=== PATIENT | female | born 1985 | race Hispanic/Latino ===

== ENCOUNTER 2016-09-01 21:18 | Emergency (ER) | payer SELFPAY ==
[~2016-09-01] VITALS: Ht 152.4 cm; Wt 89.0 kg
[~2016-09-01 21:18] MED LIST: ACETTAB3 PO; AMOXICILLIN500 MG PO; CIPRO500 MG OR; CIPRO500 MG PO; CIPROFLOXACN500 MG PO; DENIES CURRENT MEDS; FLEXERIL PO; LORTAB 5/3255 MG PO; NAPROSYN500 MG OR; NAPROSYN500 MG PO; NO; NO HOME MEDS; PRE-NATAL PO; PRILOSEC OTC20 MG OR; PROAIR HFA IN; ULTRAM50 M1 PO; ULTRAM50 MG OR
[2016-09-01 22:02] LABS: HEMATOCRIT 35.7 % (37.0-47.0); HEMOGLOBIN 11.7 g/dl (12.0-16.0); IMMATURE GRANULOCYTES 0.9 % (0.0-1.0); MEAN CELL VOLUME 80.6 fL CALC (80.0-100.0); MEAN CORPUSCULAR HGB 26.4 pG CALC (26.0-32.0); MEAN CORPUSCULAR HGB CONC 32.8 g/L CALC (32.0-36.0); NEUT# 7.1 thou/uL (2.00-7.15); RED BLOOD COUNT 4.43 mill/uL (4.20-5.60); RED CELL DISTRI WIDTH 14.6 % (11.5-15.5)
[2016-09-01 22:11] LABS: ALBUMIN 4.2 g/dL (3.2-5.0); ALKALINE PHOSPHATASE 92 u/l (38-126); ANION GAP 14 (6-22 (CALC)); BILIRUBIN, TOTAL 0.3 mg/dL (0.0-1.4); BUN 10 mg/dL (7-17); BUN/CREATININE RATIO 14 (12-20 (CALC)); CALCIUM 8.9 mg/dL (8.4-10.2); CARBON DIOXIDE 28 mmol/l (22-30); CHLORIDE 102 mmol/l (95-108); CREATININE 0.7 mg/dL (0.5-1.0); GFR > 60 ML/MIN (>=60 (CALC)); GFR FOR AFR.AMER. > 60 ML/MIN (>=60 (CALC)); GLUCOSE 95 mg/dL (65-105); POTASSIUM 3.6 mmol/l (3.5-5.1); SGOT/AST 31 u/l (14-36); SGPT/ALT 39 u/l (9-52); SODIUM 140 mmol/l (137-146); TOTAL PROTEIN 7.9 g/dL (6.3-8.2)
[2016-09-01 22:21] LABS: MYOGLOBIN 17 ng/mL (0 - 62)
[2016-09-01] MEDS ORDERED: NAPROSYN500 MG PO (22:58)
[2016-09-01 23:16] LABS: URINE BILIRUBIN - DIPSTICK NEGATIVE (NEGATIVE); URINE BLOOD DIPSTICK NEGATIVE (NEGATIVE); URINE CLARITY CLEAR; URINE COLOR YELLOW; URINE GLUCOSE - DIPSTICK NEGATIVE (NEGATIVE); URINE KETONE NEGATIVE (NEGATIVE); URINE LEUK ESTERASE NEGATIVE (NEGATIVE); URINE NITRITE - DIPSTICK NEGATIVE (Negative); URINE PH 6.5 (4.5-8.0); URINE PROTEIN - DIPSTICK NEGATIVE (NEG-TRACE); URINE UROBILINOGEN - DIPSTICK 0.2 E.U./dL (0.2)
[2016-09-01 23:17] LABS: BARBITURATES NEGATIVE (NEGATIVE); COCAINE NEGATIVE (NEGATIVE); METHADONE NEGATIVE (NEGATIVE); OXCYCODONE NEGATIVE (NEGATIVE); TETRAHYDROCANNABIONOL NEGATIVE (NEGATIVE); TRICYLIC ANTIDEPRESSANTS NEGATIVE (NEGATIVE)
[2016-09-01 23:24] VITALS: BP 117/70
== END 2016-09-01 23:25 | disposition home or self-care (01) | DRG 313 ==
LOC: ED 21:18
PROVIDERS: Emergency Medicine
DX: R07.89 Other chest pain (principal); R51 Headache

== ENCOUNTER 2017-07-28 22:08 | Emergency (ER) | payer SELFPAY ==
[~2017-07-28] VITALS: Ht 152.4 cm; Wt 87.6 kg
[2017-07-28] MEDS ORDERED: XANAX0.25 MG PO (22:49)
[2017-07-29 00:45] VITALS: BP 132/90
== END 2017-07-29 00:45 | disposition home or self-care (01) | DRG 882 ==
LOC: ED 22:08
DX: F43.20 Adjustment disorder, unspecified (principal)

== ENCOUNTER 2018-02-11 14:14 | Emergency (ER) | payer SELFPAY ==
[~2018-02-11] VITALS: Ht 152.4 cm; Wt 85.0 kg
[~2018-02-11 14:14] MED LIST changes: +CEPHALEXIN500 M1 PO; +XANAX0.25 MG PO; +ZOFRAN ODT4 MG PO
[2018-02-11] MEDS ORDERED: PRENATA3 PO (14:26)
[2018-02-11 15:02] LABS: HEMATOCRIT 36.2 % (37.0-47.0); HEMOGLOBIN 11.9 g/dl (12.0-16.0); IMMATURE GRANULOCYTES 0.5 % (0.0-5.0); MEAN CELL VOLUME 79.7 fL CALC (80.0-100.0); MEAN CORPUSCULAR HGB 26.2 pG CALC (26.0-32.0); MEAN CORPUSCULAR HGB CONC 32.9 g/L CALC (32.0-36.0); NEUT# 8.65 thou/uL (2.00-7.15); RED BLOOD COUNT 4.54 mill/uL (4.20-5.60); RED CELL DISTRI WIDTH 14.9 % (11.5-15.5)
[2018-02-11 15:09] LABS: ALBUMIN 4.1 g/dL (3.2-5.0); ALKALINE PHOSPHATASE 94 u/l (38-126); ANION GAP 16 (6-22 (CALC)); BILIRUBIN, TOTAL 0.4 mg/dL (0.0-1.4); BUN 8 mg/dL (7-17); BUN/CREATININE RATIO 14 (12-20 (CALC)); CARBON DIOXIDE 22 mmol/l (22-30); CHLORIDE 105 mmol/l (95-108); CREATININE 0.5 mg/dL (0.5-1.0); GFR > 60 ML/MIN (>=60 (CALC)); GFR FOR AFR.AMER. > 60 ML/MIN (>=60 (CALC)); POTASSIUM 4.1 mmol/l (3.5-5.1); SGOT/AST 33 u/l (14-36); SGPT/ALT 50 u/l (9-52); SODIUM 138 mmol/l (137-146); TOTAL PROTEIN 7.4 g/dL (6.3-8.2)
[2018-02-11 16:26] LABS: URINE BILIRUBIN - DIPSTICK NEGATIVE (NEGATIVE); URINE BLOOD DIPSTICK NEGATIVE (NEGATIVE); URINE COLOR YELLOW; URINE GLUCOSE - DIPSTICK NEGATIVE (NEGATIVE); URINE KETONE NEGATIVE (NEGATIVE); URINE LEUK ESTERASE TRACE (NEGATIVE); URINE NITRITE - DIPSTICK NEGATIVE (Negative); URINE PROTEIN - DIPSTICK NEGATIVE (NEG-TRACE); URINE UROBILINOGEN - DIPSTICK 0.2 E.U./dL (0.2)
[2018-02-11 16:27] LABS: URINE CLARITY HAZY
[2018-02-11] MEDS ORDERED: KEFLEX500 M1 PO (17:20)
[2018-02-11 17:23] VITALS: BP 134/64
[2018-02-11] MEDS ORDERED: REGLAN10 MG PO (17:27)
== END 2018-02-11 17:30 | disposition home or self-care (01) | DRG 781 ==
LOC: ED 14:14
DX: O23.41 Unspecified infection of urinary tract in pregnancy, first trimester (principal); O21.0 Mild hyperemesis gravidarum; Z3A.08 8 weeks gestation of pregnancy

== ENCOUNTER 2018-03-08 18:19 | Emergency (ER) | payer OTHER ==
[~2018-03-08] VITALS: Ht 152.4 cm; Wt 83.0 kg
[~2018-03-08 18:19] MED LIST changes: +KEFLEX500 M1 PO; +PRENATA3 PO; +REGLAN10 MG PO
[2018-03-08 19:09] LABS: URINE BILIRUBIN - DIPSTICK NEGATIVE (NEGATIVE); URINE BLOOD DIPSTICK NEGATIVE (NEGATIVE); URINE COLOR YELLOW; URINE GLUCOSE - DIPSTICK NEGATIVE (NEGATIVE); URINE KETONE TRACE mg/dL (NEGATIVE); URINE LEUK ESTERASE NEGATIVE (NEGATIVE); URINE NITRITE - DIPSTICK NEGATIVE (Negative); URINE PH 5.5 (4.5-8.0); URINE PROTEIN - DIPSTICK NEGATIVE (NEG-TRACE); URINE SPECIFIC GRAVITY 1.025; URINE UROBILINOGEN - DIPSTICK 0.2 E.U./dL (0.2)
[2018-03-08 19:10] LABS: URINE CLARITY CLEAR
[2018-03-08] MEDS ORDERED: ZOFRAN4 MG/TAB PO (19:56)
[2018-03-08 20:10] VITALS: BP 111/68
== END 2018-03-08 20:10 | disposition home or self-care (01) ==
LOC: ED 18:19
DX: O21.9 Vomiting of pregnancy, unspecified (principal); Z3A.12 12 weeks gestation of pregnancy; R11.2 Nausea with vomiting, unspecified; R19.7 Diarrhea, unspecified

== ENCOUNTER 2018-06-18 12:55 | Emergency (ER) | payer MEDICAID ==
[~2018-06-18] VITALS: Ht 152.4 cm; Wt 77.3 kg
[~2018-06-18 12:55] MED LIST changes: +ZOFRAN4 MG/TAB PO
[2018-06-18 13:15] VITALS: BP 120/68
[2018-06-18] MEDS ORDERED: TAM75CAP PO (13:18)
[2018-06-18] MEDS ORDERED: AMOXICILLIN500 M2 PO (13:18)
== END 2018-06-18 14:01 | disposition home or self-care (01) ==
LOC: ED 12:55
DX: O98.512 Other viral diseases complicating pregnancy, second trimester (principal); Z3A.26 26 weeks gestation of pregnancy; J06.9 Acute upper respiratory infection, unspecified; R05 Cough; R50.9 Fever, unspecified

== ENCOUNTER 2018-09-07 06:32 | Emergency (ER) | payer MEDICAID ==
[~2018-09-07] VITALS: Ht 152.4 cm; Wt 100.0 kg
[~2018-09-07 06:32] MED LIST changes: +AMOXICILLIN500 M2 PO; +TAM75CAP PO
[2018-09-07 06:44] VITALS: BP 119/57
== END 2018-09-07 07:15 ==
LOC: ED 06:32
DX: O26.893 Other specified pregnancy related conditions, third trimester (principal); R10.2 Pelvic and perineal pain; Z3A.37 37 weeks gestation of pregnancy

== ENCOUNTER 2019-01-20 18:04 | Emergency (ER) | payer SELFPAY ==
[~2019-01-20] VITALS: Ht 152.4 cm; Wt 83.0 kg
[2019-01-20] MEDS ORDERED: AMOXICILLIN875 MG PO (18:58)
[2019-01-20] MEDS ORDERED: PREDNISONE10 MG PO (18:58)
[2019-01-20 19:34] VITALS: BP 118/60
== END 2019-01-20 19:28 | disposition home or self-care (01) | DRG 153 ==
LOC: ED 18:04
DX: J02.9 Acute pharyngitis, unspecified (principal); H66.92 Otitis media, unspecified, left ear
CPT/HCPCS: J0561

== ENCOUNTER 2019-07-02 | Emergency (ER) | payer SELFPAY ==
[~2019-07-02] MED LIST changes: +AMOXICILLIN875 MG PO; +PREDNISONE10 MG PO
[2019-07-02 19:58] LABS: HEMATOCRIT 35.8 % (37.0-47.0); HEMOGLOBIN 11.4 g/dl (12.0-16.0); IMMATURE GRANULOCYTES 0.4 % (0.0-5.0); MEAN CELL VOLUME 79.4 fL CALC (80.0-100.0); MEAN CORPUSCULAR HGB 25.3 pG CALC (26.0-32.0); MEAN CORPUSCULAR HGB CONC 31.8 g/L CALC (32.0-36.0); NEUT# 5.68 thou/uL (2.00-7.15); RED BLOOD COUNT 4.51 mill/uL (4.20-5.60); RED CELL DISTRI WIDTH 15.9 % (11.5-15.5)
[2019-07-02 20:02] LABS: URINE BILIRUBIN - DIPSTICK NEGATIVE (NEGATIVE); URINE BLOOD DIPSTICK NEGATIVE (NEGATIVE); URINE COLOR YELLOW; URINE GLUCOSE - DIPSTICK NEGATIVE (NEGATIVE); URINE KETONE NEGATIVE (NEGATIVE); URINE NITRITE - DIPSTICK NEGATIVE (Negative); URINE PH 6.5 (4.5-8.0); URINE PROTEIN - DIPSTICK NEGATIVE (NEG-TRACE); URINE SPECIFIC GRAVITY 1.015; URINE UROBILINOGEN - DIPSTICK 0.2 E.U./dL (0.2)
[2019-07-02 20:06] LABS: URINE LEUK ESTERASE SMALL (NEGATIVE)
[2019-07-02 20:20] LABS: URINE RBC 0-2 RBC/hpf (0-5); URINE SQUAMOUS EPITHELIAL CELL RARE EPI/hpf (0-FEW)
[2019-07-02 20:21] LABS: URINE YEAST RARE hpf
[2019-07-02 20:25] LABS: ALKALINE PHOSPHATASE 98 u/l (38-126); ANION GAP 12 (6-22 (CALC)); BILIRUBIN, TOTAL 0.4 mg/dL (0.0-1.4); BUN 11 mg/dL (7-17); BUN/CREATININE RATIO 18 (12-20 (CALC)); CARBON DIOXIDE 25 mmol/l (22-30); CHLORIDE 106 mmol/l (95-108); CREATININE 0.6 mg/dL (0.5-1.0); GFR > 60 ML/MIN (>=60 (CALC)); GFR FOR AFR.AMER. > 60 ML/MIN (>=60 (CALC)); SGOT/AST 29 u/l (14-36); SODIUM 138 mmol/l (137-146); TOTAL PROTEIN 7.5 g/dL (6.3-8.2)
[2019-07-02 20:30] LABS: BARBITURATES NEGATIVE (NEGATIVE); COCAINE NEGATIVE (NEGATIVE); METHADONE NEGATIVE (NEGATIVE); OXCYCODONE NEGATIVE (NEGATIVE); TETRAHYDROCANNABIONOL NEGATIVE (NEGATIVE); TRICYLIC ANTIDEPRESSANTS NEGATIVE (NEGATIVE)
[2019-07-02] MEDS ORDERED: FIORICET PO (20:42)
== END 2019-07-02 21:22 | disposition home or self-care (01) | DRG 103 ==
PROVIDERS: Family Medicine
DX: R51 Headache (principal)

== ENCOUNTER 2020-03-26 14:26 | Emergency (ER) | payer OTHER ==
[~2020-03-26] VITALS: Ht 152.4 cm; Wt 90.0 kg
[~2020-03-26 14:26] MED LIST changes: +FIORICET PO
[2020-03-26 15:48] LABS: URINE BILIRUBIN - DIPSTICK NEGATIVE (NEGATIVE); URINE BLOOD DIPSTICK NEGATIVE (NEGATIVE); URINE COLOR YELLOW; URINE GLUCOSE - DIPSTICK NEGATIVE (NEGATIVE); URINE KETONE NEGATIVE (NEGATIVE); URINE LEUK ESTERASE NEGATIVE (NEGATIVE); URINE NITRITE - DIPSTICK NEGATIVE (Negative); URINE PROTEIN - DIPSTICK NEGATIVE (NEG-TRACE); URINE SPECIFIC GRAVITY >=1.030; URINE UROBILINOGEN - DIPSTICK 0.2 E.U./dL (0.2)
[2020-03-26] MEDS ORDERED: NAPROXEN500 MG PO (17:23)
[2020-03-26 17:34] VITALS: BP 128/85
== END 2020-03-26 17:34 | disposition home or self-care (01) | DRG 552 ==
LOC: ED 14:26
PROVIDERS: Emergency Medicine
DX: S23.3XXA Sprain of ligaments of thoracic spine, initial encounter (principal); S33.5XXA Sprain of ligaments of lumbar spine, initial encounter; S20.212A Contusion of left front wall of thorax, initial encounter; W01.0XXA Fall on same level from slipping, tripping and stumbling without subsequent striking against object, initial encounter; Y93.89 Activity, other specified; Y92.73 Farm field as the place of occurrence of the external cause; Y99.0 Civilian activity done for income or pay

== ENCOUNTER 2020-07-15 21:28 | Emergency (ER) | payer SELFPAY ==
[~2020-07-15] VITALS: Ht 152.4 cm; Wt 91.0 kg
[~2020-07-15 21:28] MED LIST changes: +NAPROXEN500 MG PO
[2020-07-15 22:19] LABS: HEMATOCRIT 36.6 % (37.0-47.0); HEMOGLOBIN 11.8 g/dl (12.0-16.0); IMMATURE GRANULOCYTES 0.3 % (0.0-5.0); MEAN CELL VOLUME 85.7 fL CALC (80.0-100.0); MEAN CORPUSCULAR HGB 27.6 pG CALC (26.0-32.0); MEAN CORPUSCULAR HGB CONC 32.2 g/dL CAL (32.0-36.0); NEUT# 5.88 thou/uL (2.00-7.15); RED BLOOD COUNT 4.27 mill/uL (4.20-5.60); RED CELL DISTRI WIDTH 14.3 % (11.5-15.5)
[2020-07-15 22:33] LABS: ALKALINE PHOSPHATASE 105 u/l (38-126); ANION GAP 10 (6-22 (CALC)); BILIRUBIN, TOTAL 0.4 mg/dL (0.0-1.4); BUN 10 mg/dL (7-17); BUN/CREATININE RATIO 12 (12-20 (CALC)); CARBON DIOXIDE 26 mmol/l (22-30); CHLORIDE 105 mmol/l (95-108); CREATININE 0.8 mg/dL (0.5-1.0); GFR > 60 ML/MIN (>=60 (CALC)); GFR FOR AFR.AMER. > 60 ML/MIN (>=60 (CALC)); POTASSIUM 3.4 mmol/l (3.5-5.1); SODIUM 138 mmol/l (137-146); TOTAL PROTEIN 7.2 g/dL (6.3-8.2)
[2020-07-15 22:34] LABS: PROTHROMBIN TIME 10.3 SECONDS (9.0-12.5)
[2020-07-15 22:36] LABS: SGOT/AST 90 u/l (14-36)
[2020-07-15 22:44] LABS: MYOGLOBIN 38 ng/mL (0 - 62)
[2020-07-15 22:49] LABS: D-DIMER 0.25 mg/L (0.19-0.60)
[2020-07-15] MEDS ORDERED: TORADOL PO (23:14)
[2020-07-15 23:28] VITALS: BP 108/52
== END 2020-07-15 23:28 | disposition home or self-care (01) | DRG 313 ==
LOC: ED 21:28
PROVIDERS: Family Medicine
DX: R07.89 Other chest pain (principal)

== ENCOUNTER 2022-10-16 14:02 | Emergency (ER) | payer SELFPAY ==
[2022-10-16] VITALS (9 sets, daily range): BP systolic 101–131; BP diastolic 48–91
[~2022-10-16] VITALS: Ht 152.4 cm; Wt 88.6 kg
[~2022-10-16 14:02] MED LIST changes: +TORADOL PO
[2022-10-16 14:45] LABS: URINE BILIRUBIN - DIPSTICK NEGATIVE (NEGATIVE); URINE BLOOD DIPSTICK TRACE-LYSED (NEGATIVE); URINE COLOR YELLOW; URINE GLUCOSE - DIPSTICK NEGATIVE (NEGATIVE); URINE KETONE NEGATIVE (NEGATIVE); URINE NITRITE - DIPSTICK NEGATIVE (Negative); URINE PROTEIN - DIPSTICK NEGATIVE (NEG-TRACE); URINE SPECIFIC GRAVITY 1.025; URINE UROBILINOGEN - DIPSTICK 0.2 E.U./dL (0.2)
[2022-10-16 14:46] LABS: BASO% 0.3 % (0-3); EOS% 1.5 % (0-8); HEMATOCRIT 43.8 % (37.0-47.0); HEMOGLOBIN 13.4 g/dl (12.0-16.0); IMMATURE GRANULOCYTES 0.2 % (0.0-5.0); LYMPH% 20.5 % (15-41); MEAN CELL VOLUME 80.7 fL CALC (80.0-100.0); MEAN CORPUSCULAR HGB 24.7 pG CALC (26.0-32.0); MEAN CORPUSCULAR HGB CONC 30.6 g/dL CAL (32.0-36.0); MONO% 6.2 % (2-13); NEUT# 9.23 thou/uL (2.00-7.15); NEUT% 71.3 % (42-76); RED BLOOD COUNT 5.43 mill/uL (4.20-5.60); RED CELL DISTRI WIDTH 15.1 % (11.5-15.5); URINE LEUK ESTERASE SMALL (NEGATIVE)
[2022-10-16 14:51] LABS: URINE RBC 0-2 RBC/hpf (0-5)
[2022-10-16 14:52] LABS: URINE SQUAMOUS EPITHELIAL CELL MANY EPI/hpf (0-FEW)
[2022-10-16 14:56] LABS: ALBUMIN 4.4 g/dL (3.2-5.0); ALKALINE PHOSPHATASE 120 u/l (38-126); ANION GAP 9 (6-22 (CALC)); BILIRUBIN, TOTAL 0.3 mg/dL (0.02-1.3); BUN 5 mg/dL (7-17); BUN/CREATININE RATIO 8 (12-20 (CALC)); CARBON DIOXIDE 25 mmol/l (22-30); CHLORIDE 107 mmol/l (95-108); CREATININE 0.7 mg/dL (0.5-1.0); GFR FOR AFR.AMER. > 60 ML/MIN (>=60 (CALC)); GFR OTHER RACES > 60 ML/MIN (>=60 (CALC)); POTASSIUM 3.7 mmol/l (3.5-5.1); SGOT/AST 42 u/l (14-36); SODIUM 138 mmol/l (137-146); TOTAL PROTEIN 8.2 g/dL (6.3-8.2)
--- NOTE | 2022-10-19 12:07 | NUR ---
Contacted pt following urine culture results. Pt is still experiencing UTI symptoms including burning and pain with urination. She beleives she had a fever last night and is not feeling well. Advised pt to return to ED to be re-evaluated per Dr Rod's recommendation. Pt states she will return to ED this afternoon.
== END 2022-10-16 17:58 | disposition home or self-care (01) | DRG 833 ==
LOC: ED 14:02
PROVIDERS: Nurse Practitioner
DX: O26.899 Other specified pregnancy related conditions, unspecified trimester (principal); R10.2 Pelvic and perineal pain; O26.859 Spotting complicating pregnancy, unspecified trimester; Z3A.00 Weeks of gestation of pregnancy not specified

== ENCOUNTER 2022-10-19 16:41 | Emergency (ER) | payer SELFPAY ==
[~2022-10-19] VITALS: Ht 152.4 cm; Wt 88.0 kg
[2022-10-19] VITALS (8 sets, daily range): BP systolic 95–125; BP diastolic 47–79
[2022-10-19 17:24] LABS: BASO% 0.4 % (0-3); HEMATOCRIT 40.1 % (37.0-47.0); HEMOGLOBIN 12.2 g/dl (12.0-16.0); IMMATURE GRANULOCYTES 0.1 % (0.0-5.0); LYMPH% 22.3 % (15-41); MEAN CELL VOLUME 81.7 fL CALC (80.0-100.0); MEAN CORPUSCULAR HGB 24.8 pG CALC (26.0-32.0); MEAN CORPUSCULAR HGB CONC 30.4 g/dL CAL (32.0-36.0); MONO% 6.2 % (2-13); NEUT# 7.22 thou/uL (2.00-7.15); RED BLOOD COUNT 4.91 mill/uL (4.20-5.60); RED CELL DISTRI WIDTH 15.6 % (11.5-15.5)
[2022-10-19 17:37] LABS: ALBUMIN 4.2 g/dL (3.2-5.0); ALKALINE PHOSPHATASE 92 u/l (38-126); ANION GAP 12 (6-22 (CALC)); BILIRUBIN, TOTAL 0.4 mg/dL (0.02-1.3); BUN 5 mg/dL (7-17); BUN/CREATININE RATIO 6 (12-20 (CALC)); CARBON DIOXIDE 23 mmol/l (22-30); CHLORIDE 106 mmol/l (95-108); CREATININE 0.8 mg/dL (0.5-1.0); GFR FOR AFR.AMER. > 60 ML/MIN (>=60 (CALC)); GFR OTHER RACES > 60 ML/MIN (>=60 (CALC)); POTASSIUM 3.4 mmol/l (3.5-5.1); SGOT/AST 39 u/l (14-36); SODIUM 138 mmol/l (137-146); TOTAL PROTEIN 7.7 g/dL (6.3-8.2)
[2022-10-19 17:54] LABS: BETA-HCG, QUANT(RESULT NUMBER) 742 mIU/mL
[2022-10-19 19:12] LABS: URINE BILIRUBIN - DIPSTICK NEGATIVE (NEGATIVE); URINE BLOOD DIPSTICK NEGATIVE (NEGATIVE); URINE COLOR YELLOW; URINE GLUCOSE - DIPSTICK NEGATIVE (NEGATIVE); URINE KETONE NEGATIVE (NEGATIVE); URINE LEUK ESTERASE NEGATIVE (NEGATIVE); URINE PH 6.5 (4.5-8.0); URINE PROTEIN - DIPSTICK NEGATIVE (NEG-TRACE); URINE SPECIFIC GRAVITY <=1.005; URINE UROBILINOGEN - DIPSTICK 0.2 E.U./dL (0.2)
[2022-10-19 19:16] LABS: URINE NITRITE - DIPSTICK NEGATIVE (Negative)
[2022-10-19] MEDS ORDERED: OMNICEF300 M1 PO (19:38)
== END 2022-10-19 20:23 | disposition home or self-care (01) | DRG 832 ==
LOC: ED 16:41
PROVIDERS: Nurse Practitioner
DX: O20.0 Threatened abortion (principal); O23.40 Unspecified infection of urinary tract in pregnancy, unspecified trimester; N39.0 Urinary tract infection, site not specified; Z3A.00 Weeks of gestation of pregnancy not specified

== ENCOUNTER 2023-01-06 23:01 | Emergency (ER) | payer SELFPAY ==
[~2023-01-06] VITALS: Ht 152.4 cm; Wt 81.0 kg
[~2023-01-06 23:01] MED LIST changes: +OMNICEF300 M1 PO
[2023-01-06 23:32] VITALS: BP 129/66
[2023-01-06 23:45] VITALS: BP 100/57
[2023-01-06 23:57] LABS: BASO% 0.1 % (0-3); EOS% 1.2 % (0-8); HEMATOCRIT 34.2 % (37.0-47.0); HEMOGLOBIN 11.3 g/dl (12.0-16.0); IMMATURE GRANULOCYTES 0.2 % (0.0-5.0); LYMPH% 21.8 % (15-41); MEAN CELL VOLUME 81.4 fL CALC (80.0-100.0); MEAN CORPUSCULAR HGB 26.9 pG CALC (26.0-32.0); MONO% 5.6 % (2-13); NEUT# 8.97 thou/uL (2.00-7.15); NEUT% 71.1 % (42-76); RED BLOOD COUNT 4.2 mill/uL (4.20-5.60); RED CELL DISTRI WIDTH 16.1 % (11.5-15.5)
[2023-01-07] VITALS (9 sets, daily range): BP systolic 90–110; BP diastolic 47–74
[2023-01-07 00:06] LABS: URINE BILIRUBIN - DIPSTICK Negative (NEGATIVE); URINE BLOOD DIPSTICK Large (NEGATIVE); URINE COLOR Yellow; URINE GLUCOSE - DIPSTICK Negative (NEGATIVE); URINE KETONE Negative (NEGATIVE); URINE NITRITE - DIPSTICK Negative (Negative); URINE PH 5.5 (4.5-8.0); URINE PROTEIN - DIPSTICK 30 mg/dL (NEG-TRACE); URINE SPECIFIC GRAVITY >=1.030; URINE UROBILINOGEN - DIPSTICK 0.2 E.U./dL (0.2)
[2023-01-07 00:13] LABS: URINE LEUK ESTERASE Negative (NEGATIVE); URINE RBC >100 RBC/hpf (0-5)
[2023-01-07 00:14] LABS: URINE BACTERIA MODERATE hpf; URINE EPITHELIAL CELLS MODERATE EPI/hpf (0-FEW)
[2023-01-07 00:15] LABS: ALBUMIN 3.9 g/dL (3.2-5.0); ALKALINE PHOSPHATASE 94 u/l (38-126); ANION GAP 13 (6-22 (CALC)); BUN 7 mg/dL (7-17); BUN/CREATININE RATIO 11 (12-20 (CALC)); CARBON DIOXIDE 23 mmol/l (22-30); CHLORIDE 105 mmol/l (95-108); CREATININE 0.6 mg/dL (0.5-1.0); GFR FOR AFR.AMER. > 60 ML/MIN (>=60 (CALC)); GFR OTHER RACES > 60 ML/MIN (>=60 (CALC)); POTASSIUM 3.9 mmol/l (3.5-5.1); SGOT/AST 23 u/l (14-36); SODIUM 137 mmol/l (137-146); TOTAL PROTEIN 7.4 g/dL (6.3-8.2)
[2023-01-07 00:17] LABS: BILIRUBIN, TOTAL 0.6 mg/dL (0.02-1.3)
[2023-01-07 00:59] LABS: BETA-HCG, QUANT(RESULT NUMBER) 17479 mIU/mL
== END 2023-01-07 04:20 | disposition home or self-care (01) | DRG 833 ==
LOC: ED 23:01
PROVIDERS: Emergency Medicine
DX: O20.0 Threatened abortion (principal); Z3A.17 17 weeks gestation of pregnancy

== ENCOUNTER 2023-06-12 10:08 | Emergency (ER) | payer OTHER ==
[~2023-06-12] VITALS: Ht 152.4 cm; Wt 90.2 kg
[2023-06-12] VITALS (8 sets, daily range): BP systolic 107–124; BP diastolic 52–68
== END 2023-06-12 12:03 ==
LOC: ED 10:08
DX: O09.523 Supervision of elderly multigravida, third trimester (principal); Z3A.39 39 weeks gestation of pregnancy

== ENCOUNTER 2023-12-24 11:27 | Emergency (ER) | payer SELFPAY ==
[~2023-12-24] VITALS: Ht 152.4 cm; Wt 81.0 kg
[2023-12-24] VITALS (10 sets, daily range): BP systolic 108–158; BP diastolic 61–79
[~2023-12-24 11:27] MED LIST changes: +BACTRIM DS1 TAB PO; +VOLTAREN - GENE75 MG PO
[2023-12-24 11:52] LABS: URINE BILIRUBIN - DIPSTICK Negative (NEGATIVE); URINE BLOOD DIPSTICK Large (NEGATIVE); URINE GLUCOSE - DIPSTICK Negative (NEGATIVE); URINE KETONE Negative (NEGATIVE); URINE LEUK ESTERASE Negative (NEGATIVE); URINE NITRITE - DIPSTICK Negative (Negative); URINE PROTEIN - DIPSTICK Negative (NEG-TRACE); URINE SPECIFIC GRAVITY 1.015; URINE UROBILINOGEN - DIPSTICK 0.2 E.U./dL (0.2)
[2023-12-24 11:53] LABS: BASO% 0.4 % (0-3); EOS% 3.4 % (0-8); HEMATOCRIT 37.8 % (37.0-47.0); IMMATURE GRANULOCYTES 0.2 % (0.0-5.0); MEAN CELL VOLUME 79.2 fL CALC (80.0-100.0); MEAN CORPUSCULAR HGB 25.2 pG CALC (26.0-32.0); MEAN CORPUSCULAR HGB CONC 31.7 g/dL CAL (32.0-36.0); MONO% 5.8 % (2-13); NEUT# 5.71 thou/uL (2.00-7.15); NEUT% 59.2 % (42-76); RED BLOOD COUNT 4.77 mill/uL (4.20-5.60); RED CELL DISTRI WIDTH 14.6 % (11.5-15.5)
[2023-12-24 11:54] LABS: URINE COLOR Yellow
[2023-12-24 11:56] LABS: URINE EPITHELIAL CELLS FEW EPI/hpf (0-FEW)
[2023-12-24 12:09] LABS: ALBUMIN 4.7 g/dL (3.2-5.0); BILIRUBIN, TOTAL 0.6 mg/dL (0.02-1.3); CREATININE 0.7 mg/dL (0.5-1.0); POTASSIUM 3.5 mmol/l (3.5-5.1); TOTAL PROTEIN 8.3 g/dL (6.3-8.2)
== END 2023-12-24 14:01 | disposition home or self-care (01) | DRG 833 ==
LOC: ED 11:27
PROVIDERS: Family Medicine
DX: O26.891 Other specified pregnancy related conditions, first trimester (principal); R10.31 Right lower quadrant pain; R10.32 Left lower quadrant pain; R11.0 Nausea; O09.521 Supervision of elderly multigravida, first trimester; O34.22 Maternal care for cesarean scar defect (isthmocele); N85.8 Other specified noninflammatory disorders of uterus; Z3A.01 Less than 8 weeks gestation of pregnancy